=== PATIENT | female | born 1940 | race Asian ===

== ENCOUNTER 2020-01-17 23:38 | Inpatient (IN) | payer BC, OTHER ==
[~2020-01-17] VITALS: Ht 154.9 cm; Wt 59.4 kg
--- NOTE | 2020-01-17 23:38 | NUR ---
BIB EMS C/O SOB, NEAR SYNCOPE, NAUSEA. PT REBECCAS LOC. BS-[id number]; PT AAOX4, GOWNED, PLACED ON MONITOR. VSS, PENDING ER PROVIDER DANITA
[2020-01-18] MEDS ORDERED: IV NS 0.9% 500 ML BAG IV ONE
[2020-01-18] MEDS ORDERED: ONDANSETRON HCL/PF 4 MG/2 ML VIAL ONE ×2 (00:04→01:53)
[2020-01-18 00:07] LABS: BASOPHILS % (AUTO) 0.6 % (0.0-2.0); EOSINOPHILS % (AUTO) 0.9 % (0.0-6.0); HEMATOCRIT 39 % (33-45); HEMOGLOBIN 13.1 g/dL (11.5-14.8); LYMPHOCYTES # (AUTO) 1.7 /CMM (0.8-4.8); LYMPHOCYTES % (AUTO) 21.9 % (20.0-44.0); MEAN CORPUSCULAR HGB CONC 34 g/dl (31.0-36.0); MEAN CORPUSCULAR VOLUME 100 fL (82-100); MONOCYTES # (AUTO) 0.5 /CMM (0.1-1.30); MONOCYTES % (AUTO) 6.4 % (2.0-12.0); NEUTROPHILS # (AUTO) 5.5 /CMM (1.8-8.9); NEUTROPHILS % (AUTO) 70.2 % (43.0-81.0); PLATELET COUNT (AUTO) 150 /CMM (150-450); RED BLOOD CELL COUNT(AUTO) 3.88 MIL/uL (4.0-5.2); WHITE BLOOD COUNT (AUTO) 7.8 K/uL (4.3-11.0)
[2020-01-18 00:18] LABS: CALCIUM, SERUM 8.7 mg/dL (8.5-10.1); CARBON DIOXIDE 25 mmol/L (21-32); CHLORIDE 103 mmol/L (98-107); CREATININE 0.8 mg/dL (0.6-1.3); GLUCOSE 146 mg/dL (74-106); POTASSIUM 3.8 mmol/L (3.5-5.1); SODIUM SERUM 138 mmol/L (136-145); UREA NITROGEN, BLOOD 23 mg/dL (7-18)
[2020-01-18 00:24] LABS: ALANINE AMINOTRANSFERASE 29 U/L (12-78); ALBUMIN 3.6 g/dL (3.4-5.0); ALCOHOL, BLOOD < 3 mg/dL (0-0); ALKALINE PHOSPHATASE 66 U/L (46-116); ASPARTATE AMINOTRANSFERASE 23 U/L (15-37); BILIRUBIN,DIRECT 0.1 mg/dL (0.0-0.2); BILIRUBIN,TOTAL 0.3 mg/dL (0.2-1.0); TOTAL PROTEIN, SERUM 7.2 g/dL (6.4-8.2)
[2020-01-18 00:29] LABS: ACETAMINOPHEN < 2 ug/ml (10-30)
[2020-01-18] MEDS ORDERED: ONDANSETRON HCL/PF - ER 4 MG/2 ML VIAL IV ONE ×2 (00:30→02:30)
--- NOTE | 2020-01-18 01:20 | NUR ---
CALL FROM LAB, COVID NEGATIVE
[2020-01-18 02:29] LABS: APPEARANCE,URINE CLEAR (CLEAR); BILIRUBIN,URINE NEGATIVE (NEGATIVE); BLOOD, URINE NEGATIVE Ery/uL (NEGATIVE); COLOR,URINE YELLOW (YELLOW); KETONES,URINE NEGATIVE (NEGATIVE); LEUKOCYTE ESTERASE ,URINE NEGATIVE (NEGATIVE); NITRITE, URINE NEGATIVE (NEGATIVE); PROTEIN,URINE NEGATIVE (NEGATIVE); UGLUCOSE 250 MG/DL mg/dL (NEGATIVE); UROBILINOGEN,URINE 0.2 EU/dL (0.2)
--- NOTE | 2020-01-18 02:40 | NUR ---
FAX CLINCALS+FACESHEET, AUTH# [id number] VERBAL AUTH FROM [facility] FROM [facility]
--- NOTE | 2020-01-18 04:25 | NUR ---
REPORT GIVEN TO CARLOS BENSON FOR LUIS FERNANDO
[2020-01-18] MEDS ORDERED: Z GUARD REMEDY 2 OZ OINT TP PRN (04:30)
[2020-01-18] MEDS ORDERED: ACETAMINOPHEN 325 MG TABLET PO PRN (04:30)
[2020-01-18] MEDS ORDERED: ONDANSETRON HCL/PF 4 MG/2 ML VIAL IVP PRN (04:30)
[2020-01-18] MEDS ORDERED: IV NS 0.9% 1,000 ML IV PRN (04:30)
--- NOTE | 2020-01-18 04:43 | NUR ---
TENNIS PROFESSIONAL NOTES Received patient from ER via rney accompanied by 2 ER staff. Admitted to Tele 311-2 due to autonomic imbalance under the service of DYLAN Song. Transferred to bed comfortably, noted ambulatory with assistive device (crutch). Admission routine done. Initial skin assessment done, no skin issues identified. Admission orders noted and carried out. Put on tele monitor with NSR noted. Pt denies any discomfort at this time. On RA, no respiratory distress noted. Pt preferred to be on her casual clothes. Kept on bed clean, dry and comfortable. Call light within easy reach. On fall and aspiration precautions. Will continue to monitor accordingly.
[2020-01-18 04:50] VITALS: BP 147/83
--- NOTE | 2020-01-18 06:44 | NUR ---
RN CLOSING NOTES Pt awake on bed. On RA, denies any discomfort at this time. All nursing needs attended. Kept on bed clean dry and comfortable. On fall and aspiration precautions. On tele monitor with NSR noted. Endorsed.
--- NOTE | 2020-01-18 07:20 | NUR ---
TELE/RN OPENING NOTES RECEIVED PATIENT IS ON BED AWAKE, ALERT AND ORIENTED X4. PATIENT IN NO APPARENT RESPIRATORY DISTRESS NOTED. PATIENT DENIES PAIN AT THIS TIME. TELE MONITOR IN PLACED READING SR 65 BPM. WILL CONTINUE TO MONITOR.
[2020-01-18] MEDS ORDERED: PANTOPRAZOLE 40 MG TABLET.DR PO SCH (07:30)
[2020-01-18] MEDS ORDERED: ASPIRIN EC 81 MG TABLET.DR PO SCH (09:00)
[2020-01-18] MEDS ORDERED: ENOXAPARIN SODIUM 40 MG/0.4 ML DISP.SYRIN SQ SCH (09:00)
[2020-01-18] MEDS ORDERED: ATOR40TA PO (09:25)
[2020-01-18] MEDS ORDERED: OLME5TAB6 PO (09:25)
[2020-01-18] MEDS ORDERED: OMEP40CA13 PO (09:25)
--- NOTE | 2020-01-18 10:10 | NUR ---
TELE/RN NOTES DR. COMBS ORDER ORTHOSTATIC HYPOTENSION CHECK. NOTED AND CARRIED OUT.
--- NOTE | 2020-01-18 11:00 | NUR ---
TELE/RN NOTES ORTHOSTATIC BLOOD PRESSURE CHECKED V/S 1040 LYING BP 136/78 P 64 1045 SETTING BP 155/84 P 68 STANDING 1050 BP 145/[address] COMBS IS AWARE. NO NEW ORDER AT THIS TIME.
--- NOTE | 2020-01-18 12:52 | NUR ---
TELE/RN NOTES HOME MEDICATION RECONCILIATION, IS AWARE. WILL CONTINUE TO FOLLOW UP.
--- NOTE | 2020-01-18 17:19 | NUR ---
RN NOTES PATIENT IS ALERT AND ORIENTED X4. IN ROOM AIR AND SATURATION AT 98%. RESPIRATION REGULAR AND UNLABORED. PATIENT DENIES PAIN AT THIS TIME. PATIENT IN NO APPARENT RESPIRATORY DISTRESS NOTED. SEEN AND EXAMINED BY MD WITH ORDERS MADE AND CARRIED OUT. PATIENT WAS GIVEN DISCHARGED INSTRUCTIONS AND PATIENT VERBALIZED UNDERSTANDING. THE PATIENT LEFT IN THE HOSPITAL IN STABLE CONDITION AT 1700, VIA TAXI.
[2020-01-18] MEDS ORDERED: ATORVASTATIN 10 MG TABLET PO SCH (22:00)
== END 2020-01-18 17:00 | disposition home or self-care (01) | DRG 74 ==
LOC: ER 23:42 → TELE 01-18 03:00
PROVIDERS: ADMIT Internal Medicine; ATTEND Internal Medicine
DX: G90.8 Other disorders of autonomic nervous system (principal); N17.9 Acute kidney failure, unspecified; I50.32 Chronic diastolic (congestive) heart failure; D64.9 Anemia, unspecified; I11.0 Hypertensive heart disease with heart failure; E78.5 Hyperlipidemia, unspecified
CPT/HCPCS: 36415; 70450-TC; 71045-TC; 80048-TC; 80076-TC; 81000-TC; 84484-TC; 85025-TC; 87081-TC; 93307-TC; 93880-TC; 97112-TC; 97116-TC; 97530-TC; C9803; G0378; G0480; J1650; J2405; J7030